=== PATIENT | male | born 1955 | race Caucasian/White ===

== ENCOUNTER → 2018-09-30 | Outpatient (CLI) | payer MEDICARE ==
[~2018-09-30] MED LIST: GADOBUTROL 10 MMOL/10 ML PFS ONE
== END | disposition home or self-care (01) ==
LOC: CFH 12:41
PROVIDERS: ATTEND Family Medicine
DX: G93.89 Other specified disorders of brain (principal); N62 Hypertrophy of breast
CPT/HCPCS: 70553; 76641; 77066; 82565; A9585

== ENCOUNTER → 2019-01-19 | Outpatient (CLI) | payer MEDICARE | END | disposition home or self-care (01) | LOC: CFH 14:46 | PROVIDERS: ATTEND Orthopaedic Surgery | DX: S83.231A Complex tear of medial meniscus, current injury, right knee, initial encounter (principal); M17.11 Unilateral primary osteoarthritis, right knee; M25.461 Effusion, right knee; M76.9 Unspecified enthesopathy, lower limb, excluding foot; X58.XXXA Exposure to other specified factors, initial encounter; Y93.89 Activity, other specified; Y92.89 Other specified places as the place of occurrence of the external cause; Y99.8 Other external cause status ==

== ENCOUNTER 2020-02-21 11:17 | Outpatient (CLI) | payer MEDICARE | END 2020-02-21 23:59 | disposition home or self-care (01) | LOC: CFH 11:17 | PROVIDERS: ATTEND Family Medicine | DX: M19.012 Primary osteoarthritis, left shoulder (principal); M25.712 Osteophyte, left shoulder ==

== ENCOUNTER 2020-06-07 07:39 | Outpatient (CLI) | payer MEDICARE | END 2020-06-07 23:59 | disposition home or self-care (01) | LOC: ROC 07:39 | PROVIDERS: ATTEND Radiology Radiation Oncology | DX: C32.1 Malignant neoplasm of supraglottis (principal) | CPT/HCPCS: G0463 ==

== ENCOUNTER → 2020-06-11 | Outpatient (CLI) | payer MEDICARE ==
[~2020-06-11] MED LIST changes: -GADOBUTROL 10 MMOL/10 ML PFS ONE; +OMNIPAQUE 350 MG/ML, 100ML BOTTLE ONE
== END | disposition home or self-care (01) ==
LOC: CFH 09:48
PROVIDERS: ATTEND Radiology Radiation Oncology
DX: C32.9 Malignant neoplasm of larynx, unspecified (principal); R49.0 Dysphonia; M50.321 Other cervical disc degeneration at C4-C5 level; K04.5 Chronic apical periodontitis; E04.2 Nontoxic multinodular goiter; R22.0 Localized swelling, mass and lump, head
CPT/HCPCS: 70491; Q9967

== ENCOUNTER → 2020-06-25 | Outpatient (CLI) | payer MEDICARE | END | disposition home or self-care (01) | LOC: PETCFH 12:30 | PROVIDERS: ATTEND Internal Medicine Hematology & Oncology | DX: C32.8 Malignant neoplasm of overlapping sites of larynx (principal); G93.89 Other specified disorders of brain; E04.2 Nontoxic multinodular goiter | CPT/HCPCS: 78815; A9552 ==

== ENCOUNTER → 2020-07-01 | Outpatient (CLI) | payer MEDICARE | END | disposition home or self-care (01) | LOC: RAD 13:47 | PROVIDERS: ATTEND Radiology Radiation Oncology | DX: R13.10 Dysphagia, unspecified (principal) | CPT/HCPCS: 74230 ==

== ENCOUNTER 2020-07-22 15:22 | Observation (INO) | payer MEDICARE ==
[~2020-07-22] VITALS: Ht 182.9 cm; Wt 117.9 kg
--- NOTE | 2020-07-22 15:43 | NUR ---
PT AMBULATORY TO ROOM FROM LOBBY. C/O FEELING LIGHTHEADED AFTER RADIATION TODAY, ALSO WITH INTERMITANT SOB, SHAKY, CHEST PRESSURE. PT ON MONITORS, VSS. GERALD ABURTO AT BEDSIDE.
[2020-07-22 16:05] LABS: BASOPHILS % (AUTO) 1 % (0-1); EOSINOPHILS % (AUTO) 2 % (1-7); LYMPHOCYTES % (AUTO) 27 % (22-44); MEAN CORPUSCULAR HEMOGLOBIN 30.3 pg (27.5-34.5); MEAN CORPUSCULAR HGB CONC 33.9 g/dL (33.2-36.2); MEAN PLATELET VOLUME 9.6 fL (7.4-10.4); MONOCYTES % (AUTO) 13 % (2-9); NEUTROPHILS % (AUTO) 56 % (42-75); PLATELET COUNT 265 x10^3/uL (130-400); RED BLOOD COUNT 4.94 x10^6/uL (4.38-5.82); RED CELL DISTRIBUTION WIDTH 13.8 % (9.4-14.8)
[2020-07-22 16:08] LABS: MD NO
[2020-07-22 16:14] LABS: ALANINE AMINOTRANSFERASE 35 U/L (12-78); ALBUMIN 3.5 g/dL (3.4-5.0); ANION GAP 6 mmol/L (5-15); CALCIUM 10.2 mg/dL (8.5-10.1); CHLORIDE 106 mmol/L (98-107); CREATININE 1.01 mg/dL (0.7-1.3)
[2020-07-22 16:19] LABS: ALKALINE PHOSPHATASE 130 U/L (45-117); BILIRUBIN,TOTAL 0.2 mg/dL (0.2-1.0); TOTAL PROTEIN 7.5 g/dL (6.4-8.2); TROPONIN I < 0.015 ng/mL (0.000-0.045)
--- NOTE | 2020-07-22 16:35 | NUR ---
TESTS RESULTED, CHART UP FOR RECHECK.
--- NOTE | 2020-07-22 17:07 | NUR ---
DR DORSEY AT BEDSIDE. PT TO BE ADMITED.
[2020-07-22] MEDS ORDERED: HEPARIN 5,000 UNITS/ML, 1ML ONE (17:29)
[2020-07-22] MEDS ORDERED: ASPIRIN 81 MG TABLET CHEW ONE (17:29)
[2020-07-22] MEDS ORDERED: ACETAMINOPHEN 325 MG TABLET PO PRN (17:30)
[2020-07-22] MEDS ORDERED: morphine SULFATE 10 MG/ML, 1ML IVPush PRN (17:30)
[2020-07-22] MEDS ORDERED: hydrALAzine 20 MG/ML, 1ML IVPush PRN (17:30)
[2020-07-22] MEDS ORDERED: ONDANSETRON 2MG/ML, 2ML IVPush PRN (17:30)
[2020-07-22] MEDS ORDERED: PROMETHAZINE 25 MG/ML, 1ML IM PRN (17:30)
[2020-07-22] MEDS ORDERED: LABETALOL 5MG/ML, 20ML IVPush PRN (17:30)
[2020-07-22] MEDS ORDERED: NITROGLYCERIN 0.4 MG BOTTLE (25 TABS) SL PRN (17:30)
[2020-07-22] MEDS ORDERED: ASPIRIN 81 MG TABLET CHEW PO ONE (17:30)
[2020-07-22] MEDS ORDERED: SODIUM CHLORIDE 0.9% 1,000 ML IV SCH (17:30)
[2020-07-22] MEDS: SODIUM CHLORIDE 0.9% 1,000 ML IV SCH (17:54)
[2020-07-22 18:12] LABS: CHOL/HDL RATIO 2.4; LDL/HDL RATIO 0.8 (0.5-3.0)
[2020-07-22 20:00] VITALS: BP 114/75
[2020-07-22] MEDS ORDERED: ATORVASTATIN 40 MG TABLET PO SCH (21:00)
[2020-07-22 21:14] LABS: TROPONIN I < 0.015 ng/mL (0.000-0.045)
[2020-07-22] MEDS: HEPARIN 5,000 UNITS/ML, 1ML SQ SCH (22:41)
[2020-07-23 01:09] VITALS: BP 129/82
[2020-07-23] MEDS ORDERED: CYCLOBENZAPRINE 10 MG TABLET PO ONE (02:00)
[2020-07-23] MEDS ORDERED: BUTALBIT/ACETAMIN/CAFF/CODEINE CAPSULE PO ONE (02:00)
[2020-07-23] MEDS ORDERED: PROCHLORPERAZINE 10MG TABLET PO ONE (02:00)
[2020-07-23] MEDS: SODIUM CHLORIDE 0.9% 1,000 ML IV SCH ×2 (02:12→14:18)
[2020-07-23 02:56] LABS: BASOPHILS % (AUTO) 1 % (0-1); EOSINOPHILS % (AUTO) 2 % (1-7); LYMPHOCYTES % (AUTO) 27 % (22-44); MEAN CORPUSCULAR HEMOGLOBIN 29.9 pg (27.5-34.5); MEAN CORPUSCULAR HGB CONC 33.8 g/dL (33.2-36.2); MEAN PLATELET VOLUME 9.8 fL (7.4-10.4); MONOCYTES % (AUTO) 12 % (2-9); NEUTROPHILS % (AUTO) 59 % (42-75); PLATELET COUNT 253 x10^3/uL (130-400); RED BLOOD COUNT 4.73 x10^6/uL (4.38-5.82); RED CELL DISTRIBUTION WIDTH 13.6 % (9.4-14.8)
[2020-07-23 02:57] LABS: MD NO
[2020-07-23 03:06] LABS: ALANINE AMINOTRANSFERASE 31 U/L (12-78); ALBUMIN 3.3 g/dL (3.4-5.0); ANION GAP 5 mmol/L (5-15); CALCIUM 9.7 mg/dL (8.5-10.1); CHLORIDE 108 mmol/L (98-107); CREATININE 0.92 mg/dL (0.7-1.3)
[2020-07-23 03:10] LABS: ALKALINE PHOSPHATASE 121 U/L (45-117); BILIRUBIN,TOTAL 0.3 mg/dL (0.2-1.0); TROPONIN I < 0.015 ng/mL (0.000-0.045)
[2020-07-23] MEDS: HEPARIN 5,000 UNITS/ML, 1ML SQ SCH ×2 (05:59→15:27)
[2020-07-23] MEDS ORDERED: ASPIRIN 325 MG TABLET EC PO SCH (06:00)
[2020-07-23 07:00] VITALS: BP 136/79
[2020-07-23] MEDS ORDERED: REGADENOSON 0.4 MG/5 ML SYRINGE ONE (11:22)
[2020-07-23] MEDS ORDERED: BUTALBIT/ACETAMIN/CAFF/CODEINE CAPSULE PO PRN (13:30)
[2020-07-23 14:50] VITALS: BP 124/70
[2020-07-23] MEDS ORDERED: ASPI-515 PO (16:18)
== END 2020-07-23 18:15 | disposition home or self-care (01) ==
LOC: ED 16:59 → EDIP 17:41 → 5SO 18:02
PROVIDERS: ADMIT Internal Medicine; ATTEND Internal Medicine
DX: R07.89 Other chest pain (principal); I45.10 Unspecified right bundle-branch block; C32.0 Malignant neoplasm of glottis; C14.0 Malignant neoplasm of pharynx, unspecified; E66.9 Obesity, unspecified; E83.52 Hypercalcemia; Z86.011 Personal history of benign neoplasm of the brain; Z79.899 Other long term (current) drug therapy
CPT/HCPCS: 36415; 71045; 77386; 78452; 80053; 80061; 82330; 83970; 84100; 84484; 85025; 85379; 93005; 93017; 96361; 96372; 96374; 99285; A9502; G0378; J1644; J2405; J2785; J7030; Q0164

== ENCOUNTER 2020-09-12 07:19 | Outpatient (CLI) | payer MEDICARE ==
[~2020-09-12 07:19] MED LIST changes: +ASPI-515 PO; -OMNIPAQUE 350 MG/ML, 100ML BOTTLE ONE
[2020-09-12] MEDS ORDERED: SODIUM CHLORIDE 0.9% 1,000ML ONE (10:00)
[2020-09-12] MEDS ORDERED: ONDANSETRON 2MG/ML, 2ML ONE (10:25)
[2020-09-12 11:14] LABS: BASOPHILS % (AUTO) 1 % (0-1); EOSINOPHILS % (AUTO) 1 % (1-7); LYMPHOCYTES % (AUTO) 11 % (22-44); MEAN CORPUSCULAR HEMOGLOBIN 31.7 pg (27.5-34.5); MEAN CORPUSCULAR HGB CONC 35.1 g/dL (33.2-36.2); MEAN PLATELET VOLUME 8.9 fL (7.4-10.4); MONOCYTES % (AUTO) 21 % (2-9); NEUTROPHILS % (AUTO) 67 % (42-75); PLATELET COUNT 123 x10^3/uL (130-400); RED BLOOD COUNT 3.51 x10^6/uL (4.38-5.82); RED CELL DISTRIBUTION WIDTH 17.1 % (9.4-14.8)
[2020-09-12 11:25] LABS: ALANINE AMINOTRANSFERASE 23 U/L (12-78); ALBUMIN 3.6 g/dL (3.4-5.0); ANION GAP 6 mmol/L (5-15); CALCIUM 10.4 mg/dL (8.5-10.1); CHLORIDE 105 mmol/L (98-107); CREATININE 1.33 mg/dL (0.7-1.3)
[2020-09-12 11:27] LABS: ALKALINE PHOSPHATASE 152 U/L (45-117); BILIRUBIN,TOTAL 0.5 mg/dL (0.2-1.0); TOTAL PROTEIN 7.7 g/dL (6.4-8.2)
[2020-09-12 11:41] LABS: MD SCAN
[2020-09-16] MEDS ORDERED: HYDR-3237 PO (23:35)
[2020-09-16] MEDS ORDERED: CYCL-259 PO (23:35)
[2020-09-16] MEDS ORDERED: PROC10TA78 PO (23:35)
[2020-09-16] MEDS ORDERED: CODE1CAP7 PO (23:35)
== END 2020-09-12 23:59 | disposition home or self-care (01) ==
LOC: ROC 07:19
PROVIDERS: ATTEND Radiology Radiation Oncology
DX: C32.1 Malignant neoplasm of supraglottis (principal); E87.1 Hypo-osmolality and hyponatremia; I48.91 Unspecified atrial fibrillation; E66.9 Obesity, unspecified; Z79.899 Other long term (current) drug therapy
CPT/HCPCS: 36415; 80053; 85025; 96361; 96374; G0463; J2405; J7030; 96360

== ENCOUNTER → 2020-10-21 | Outpatient (CLI) | payer MEDICARE ==
[~2020-10-21] MED LIST changes: -ASPI-515 PO; +ASPI-963 PO; +BUTA-177 PO; +CODE1CAP7 PO; +CYCL10TA2 PO; +DILT120T3 PO; +HYDR-3237 PO; +OXYC5CAP2 PO; +PROC10TA78 PO; +WARF2.5T32 PO; +Warfarin Low Dose Protocol PO
== END | disposition home or self-care (01) ==
LOC: ROC 07:55
PROVIDERS: ATTEND Radiology Radiation Oncology
DX: Z08 Encounter for follow-up examination after completed treatment for malignant neoplasm (principal); C32.1 Malignant neoplasm of supraglottis; D64.9 Anemia, unspecified; K44.9 Diaphragmatic hernia without obstruction or gangrene; E83.52 Hypercalcemia; G43.909 Migraine, unspecified, not intractable, without status migrainosus; G89.29 Other chronic pain; I48.91 Unspecified atrial fibrillation; E87.1 Hypo-osmolality and hyponatremia; Z79.01 Long term (current) use of anticoagulants; Z86.711 Personal history of pulmonary embolism
CPT/HCPCS: G2012

== ENCOUNTER → 2020-12-04 | Outpatient (CLI) | payer MEDICARE | END | disposition home or self-care (01) | LOC: PETCFH 08:33 | PROVIDERS: ATTEND Radiology Radiation Oncology | DX: C32.0 Malignant neoplasm of glottis (principal); C32.1 Malignant neoplasm of supraglottis | CPT/HCPCS: 78815; A9552 ==

== ENCOUNTER 2020-12-09 08:08 | Outpatient (CLI) | payer MEDICARE | END 2020-12-09 23:59 | disposition home or self-care (01) | LOC: ROC 08:08 | PROVIDERS: ATTEND Radiology Radiation Oncology | DX: Z08 Encounter for follow-up examination after completed treatment for malignant neoplasm (principal); Z85.21 Personal history of malignant neoplasm of larynx; E83.52 Hypercalcemia; E87.1 Hypo-osmolality and hyponatremia; G89.29 Other chronic pain; I48.91 Unspecified atrial fibrillation; Z79.01 Long term (current) use of anticoagulants | CPT/HCPCS: G0463 ==